=== PATIENT | male | born 1990 | race Caucasian/White ===

== ENCOUNTER 2018-08-25 13:14 | Observation (INO) ==
--- NOTE | 2018-08-25 17:05 | ED ---
HPI General Chief complaint: Extremity Injury, Lower Stated complaint: Foot Complaint Time Seen by Provider: 08/25/18 16:55 History of Present Illness HPI narrative: This is a 27-year-old male who presents for evaluation of left foot injury. He reports that he hit his foot on some concrete while walking downstairs on August 10. He was seen by shape brick molder Dr. Lion and he was diagnosed with 5th metatarsal fracture. He was told to come to the emergency room for consultation with the on-call shape brick molder for open reduction internal fixation. He reports mild pain, aching, aggravated by palpation, alleviated with naproxen and tramadol. He has no other complaints at this time. Related Data Allergies Allergy/AdvReac Type Severity Reaction Status Date / Time No Known Allergies Allergy Verified 08/25/18 17:00 Review of Systems ROS: all other systems reviewed are negative PMFSH Medical History Medical History Patient denies medical problems (Acute) Social History Social History Substance History: No History of Abuse Second Hand Smoke Exposure: No Smoking Status: Never smoker How Often Do You Have a Drink Containing Alcohol: Monthly or less Recent Travel in [facility] within the Last 8 Weeks: No Recent Out of Country Travel within the Last 8 Weeks: No Immunization History Tetanus Immunization: Unsure Exam Narrative Exam Narrative: GENERAL: Well-developed well-nourished male in no acute distress SKIN: Warm and dry. Ecchymosis noted on the dorsum of the left foot. No open wounds. CARDIOVASCULAR: Regular rate and rhythm. No murmur appreciated. RESPIRATORY: No accessory muscle use. Clear to auscultation. Breath sounds equal bilaterally. MUSCULOSKELETAL: No obvious deformities. Skin as noted above. Tender to palpation overlying the left fifth metatarsal. 2+ dorsalis pedis pulse. No tenderness to palpation of the ankle. The Achilles tendon is intact and nontender. NEUROLOGICAL: Awake and alert. No obvious cranial nerve deficits. Motor grossly within normal limits. Normal speech. Course Initial Documented Vital Signs Temperature 98.7 F 08/25/18 13:27 Pulse Rate 80 08/25/18 13:27 Respiratory Rate 16 08/25/18 13:27 Blood Pressure 135/58 L 08/25/18 13:27 Pulse Oximetry 99 08/25/18 13:27 Last Documented Vital Signs Temperature 98.7 F 08/25/18 13:27 Pulse Rate 72 08/25/18 17:00 Respiratory Rate 16 08/25/18 17:00 Blood Pressure 124/61 08/25/18 17:00 Pulse Oximetry 100 08/25/18 17:00 Medical Decision Making YUE Attestation YUE supervised visit: Yes Attestation: I, Dr. Hammonds, have reviewed the advance practice practitioner's documentation and am in agreement, met with the patient face to face, made the diagnosis, and the medical decision making was done by me. *My assessment and Findings: Patient seen and evaluated with PA, please see PA notes for further details. Here for a distracted closed Shah fracture in the left foot, sent in by podiatry for surgery, case was discussed with medicine for admission. MDM Narrative Medical decision making narrative: I spoke with the shape brick molder log pond worker Dr. Arambula who would like the patient admitted to medicine, consultation to podiatry, posterior short leg splint, npo after midnight. Medical Screen Exam Complete: Yes Emergency Medical Condition: Yes Differential Diagnosis Differential Diagnosis: Fifth metatarsal fracture, sprain, contusion, Lisfranc injury Lab Data Result diagrams: 08/25/18 17:55 08/25/18 17:55 Lab Results 08/25/18 Range/Units 17:55 WBC 10.4 (4.0-11.0) th/mm3 RBC 5.15 (4.50-5.90) mil/mm3 Hgb 14.9 (13.0-17.0) gm/dL Hct 42.7 (39.0-51.0) % MCV 83.0 (80.0-100.0) fL MCH 28.9 (27.0-34.0) pg MCHC 34.9 (32.0-36.0) % RDW 12.5 (11.6-17.2) % Plt Count 202 (150-450) th/mm3 MPV 8.4 (7.0-11.0) fL Neut % (Auto) 77.1 H (16.0-70.0) % Lymph % (Auto) 17.1 (9.0-44.0) % [place] % (Auto) 4.7 (0.0-8.0) % Eos % (Auto) 0.8 (0.0-4.0) % Baso % (Auto) 0.3 (0.0-2.0) % Neut # (Auto) 8.0 H (1.8-7.7) th/mm3 Lymph # (Auto) 1.8 (1.0-4.8) th/mm3 [place] # (Auto) 0.5 (0.0-0.9) th/mm3 Eos # (Auto) 0.1 (0.0-0.4) th/mm3 Baso # (Auto) 0.0 (0.0-0.2) th/mm3 WBC Differential . Differential Comment Auto diff final Imaging Data Radiologist's impression: Foot X-Ray 08/25/18 17:00 CONCLUSION: Distracted Shah type fracture of the fifth metatarsal. Discharge Plan Discharge Disposition Patient Disposition: ED Admit(ED Internal Use Only) Discharge Condition Condition: Stable Discharge Order Discharge Orders: ED Use Only Admit Order (Routine); Ordered 08/25/18 Ordered By: Chucho Travis Discharge Details Diagnosis: Closed fracture of metatarsal bone of left foot Physicians Team ED Provider: Pablo Hammonds ED Midlevel Provider: Chucho Travis Status ED Status: With Doctor
--- NOTE | 2018-08-25 17:35 | XR ---
EXAM DATE: 08/25/2018 5:14 PM EST AGE/SEX: 27 years / Male INDICATIONS: Left foot discomfort, known fracture. CLINICAL DATA: This is the patient's initial encounter. Patient reports that signs and symptoms have been present for 3 weeks and indicates a pain score of 1/10. MEDICAL/SURGICAL HISTORY: None. None. COMPARISON: No prior exams available for comparison. EXTERNAL: [place]. FINDINGS: Shah type fracture through the base of the fifth metatarsal with approximately 5 mm of bony distract ion. Osseous structures are otherwise intact. Well-corticated accessory ossification adjacent to the calcaneal cuboid articulation. CONCLUSION: Distracted Shah type fracture of the fifth metatarsal. Electronically signed by: Miguel Hughes MD Board Certified Radiologist 08/25/2018 5:33 PM EST
[2018-08-25 18:03] LABS: Baso % (Auto) 0.3 % (0.0-2.0); Eos # (Auto) 0.1 th/mm3 (0.0-0.4); Eos % (Auto) 0.8 % (0.0-4.0); Hematocrit 42.7 % (39.0-51.0); Hemoglobin 14.9 gm/dL (13.0-17.0); Lymph # (Auto) 1.8 th/mm3 (1.0-4.8); Lymph % (Auto) 17.1 % (9.0-44.0); Mean Corpuscular HGB Conc 34.9 % (32.0-36.0); Mean Corpuscular Hemoglobin 28.9 pg (27.0-34.0); Mean Platelet Volume 8.4 fL (7.0-11.0); Mono # (Auto) 0.5 th/mm3 (0.0-0.9); Mono % (Auto) 4.7 % (0.0-8.0); Neut % (Auto) 77.1 % (16.0-70.0); Platelet Count 202 th/mm3 (150-450); Red Blood Count 5.15 mil/mm3 (4.50-5.90); Red Cell Distribution Width 12.5 % (11.6-17.2); White Blood Count 10.4 th/mm3 (4.0-11.0)
[2018-08-25 18:10] LABS: Activated Partial Thrombo Time 30.2 sec (23.4-31.7); INR 1.1 Ratio; Prothrombin Time 11.2 sec (9.8-11.6)
[2018-08-25] MEDS ORDERED: Bisacodyl 10 MG Supp RECTAL PRN (18:12)
[2018-08-25] MEDS ORDERED: Naloxone Inj 0.4 MG/ML Vial IV.PUSH PRN (18:12)
[2018-08-25] MEDS ORDERED: Acetaminophen 325 MG Tablet PO PRN (18:12)
--- NOTE | 2018-08-25 18:21 | P.HP ---
History of Present Illness Primary Care Physician: No Primary Care Physician Chief Complaint: Left foot pain History of Present Illness: 27-year-old male with no significant past medical history was sent to the ED by his electrical construction project manager for evaluation of left foot injury and admission for possible open reduction internal fixation. Apparently, on August 10, 2018, while patient was walking downstairs he hit his left foot on some concrete causing significant pain. He initially went to an urgent care and patient was diagnosed with fifth metatarsal fracture of the left foot and was fitted initially with a boot. He was then seen a day also by Dr. Lion and was placed on a soft cast was advised on nonweightbearing to the left lower extremity. Patient was prescribed NSAIDs including naproxen and tramadol secondary to a mild pain and achiness. He denies any numbness to his left lower extremity. Patient is currently no other complaints Review of Systems All other systems reviewed negative except as stated in HPI PMFSH - History History Provided By: Patient - Medical History Medical History: Medical History (Last Updated 08/25/18 @ 16:57 by Rbuy Florence RN) Patient denies medical problems - Family History Family History: Family History (Last Updated 08/25/18 @ 18:19 by Tommy Borrego MD) Other Skin cancer - Tobacco History Second Hand Smoke Exposure: No Smoking Status: Never smoker - Alcohol History How Often Do You Have a Drink Containing Alcohol: Monthly or less - Substance Use History Substance History: No History of Abuse - Travel History Recent Travel in the [place] Within the Last 8 Weeks: No Recent Travel Out of the Country Within the Last 8 Weeks: No - Immunization History Tetanus Immunization: Unsure Medications and Allergies Active Medications: Active Medications Acetaminophen (Tylenol) 650 mg PO Q4H PRN PRN Reason: Temp > 100.4 Hydrocodone Bitart/Acetaminophen ([place] 5/325) 1 tab PO Q4H PRN PRN Reason: Acute Pain Al Hydroxide/Mg Hydroxide (Milk Of Magnesia Liq) 30 ml PO Q12H PRN PRN Reason: Mild Constipation Bisacodyl (Dulcolax Supp) 10 mg RECTAL DAILY PRN PRN Reason: SEVERE CONSITIPATION Lactulose (Lactulose Liq) 30 ml PO DAILY PRN PRN Reason: SEVERE CONSITIPATION Naloxone HCl (Narcan Inj) 0.4 mg IV.PUSH UNSCH PRN PRN Reason: SEE LABEL COMMENTS Ondansetron HCl (Zofran Inj) 4 mg IV.PUSH Q6H PRN PRN Reason: NAUSEA OR VOMITING Senna/Docusate Sodium (Molly-Colace) 1 tab PO BID PRAVIN Sennosides (Senokot) 17.2 mg PO Q12H PRN PRN Reason: Moderate Constipation Sodium Chloride (Ns Flush) 2 ml IV.FLUSH BID PRAVIN Sodium Chloride (Ns Flush) 2 ml IV.FLUSH PRN PRN PRN Reason: FLUSH AFTER USING IV ACCESS Allergies Allergy/AdvReac Type Severity Reaction Status Date / Time No Known Allergies Allergy Verified 08/25/18 17:00 Exam Vital signs: Vital Signs 08/25/18 13:27 08/25/18 17:00 Temperature 98.7 F Pulse Rate 80 72 Respiratory Rate 16 16 Blood Pressure 135/58 L 124/61 Pulse Oximetry 99 100 Intake & Output 08/24/18 08/25/18 08/25/18 18:59 06:59 18:59 Weight 70.307 kg Narrative: GENERAL: NAD SKIN: Warm and dry. HEAD: Atraumatic. Normocephalic. EYES: Pupils equal and round. No scleral icterus. No injection or drainage. ENT: No nasal bleeding or discharge. Mucous membranes pink and moist. NECK: Trachea midline. No JVD. CARDIOVASCULAR: Regular rate and rhythm. RESPIRATORY: No accessory muscle use. Clear to auscultation. Breath sounds equal bilaterally. GASTROINTESTINAL: Abdomen soft, non-tender, nondistended. Hepatic and splenic margins not palpable. MUSCULOSKELETAL: Extremities without clubbing, cyanosis, or edema. No obvious deformities. NEUROLOGICAL: Awake and alert. No obvious cranial nerve deficits. Motor grossly within normal limits. Five out of 5 muscle strength in the arms and legs. LLE in cast; neurovascular intact. Normal speech. PSYCHIATRIC: Appropriate mood and affect; insight and judgment normal. Results - Labs CBC & Chem 7: 08/25/18 17:55 08/25/18 17:55 Labs: Laboratory Results - last 24 hr 08/25/18 08/25/18 17:55 17:55 WBC 10.4 RBC 5.15 Hgb 14.9 Hct 42.7 MCV 83.0 MCH 28.9 MCHC 34.9 RDW 12.5 Plt Count 202 MPV 8.4 Neut % (Auto) 77.1 H Lymph % (Auto) 17.1 [place] % (Auto) 4.7 Eos % (Auto) 0.8 Baso % (Auto) 0.3 Neut # (Auto) 8.0 H Lymph # (Auto) 1.8 [place] # (Auto) 0.5 Eos # (Auto) 0.1 Baso # (Auto) 0.0 WBC Differential . Differential Comment Auto diff final PT 11.2 INR 1.1 APTT 30.2 - Imaging Impressions Foot X-Ray 08/25/18 17:00 CONCLUSION: Distracted Shah type fracture of the fifth metatarsal. Caprini VTE Risk Assessment Caprini VTE Risk Assessment: No/Low Risk (score <= 1) Caprini Risk Assessment Model: Point Value = 1 Point Value = 2 Point Value = 3 Point Value = 5 Age 41-60 Minor surgery BMI > 25 kg/m2 Swollen legs Varicose veins or History of unexplained or recurrent spontaneous Oral contraceptives or hormone replacement Sepsis (< 1 month) Serious lung disease, including pneumonia (< 1 month) Abnormal pulmonary function Acute myocardial infarction Congestive heart failure (< 1 month) History of inflammatory bowel disease Medical patient at bed rest Age 61-74 Arthroscopic surgery Major open surgery (> 45 min) Laparoscopic surgery (> 45 min) Malignancy Confined to bed (> 72 hours) Immobilizing plaster cast Central venous access Age >= 75 History of VTE Family history of VTE Factor V Leiden Prothrombin [id number] Lupus anticoagulant Anticardiolipin antibodies Elevated serum homocysteine Heparin-induced thrombocytopenia Other congenital or acquired thrombophilia Stroke (< 1 month) Elective arthroplasty Hip, pelvis, or leg fracture Acute spinal cord injury (< 1 month) Prophylaxis Regimen: Total Risk Factor Score Risk Level Prophylaxis Regimen 0-1 Low Early ambulation 2 Moderate Order ONE of the following: *Sequential Compression Device (SCD) *Heparin 5000 units SQ BID 3-4 Higher Order ONE of the following medications: *Heparin 5000 units SQ TID *Enoxaparin/Lovenox 40 mg SQ daily (WT < 150 kg, CrCl > 30 mL/min) *Enoxaparin/Lovenox 30 mg SQ daily (WT < 150 kg, CrCl > 10-29 mL/min) *Enoxaparin/Lovenox 30 mg SQ BID (WT < 150 kg, CrCl > 30 mL/min) AND/OR *Sequential Compression Device (SCD) 5 or more Highest Order ONE of the following medications: *Heparin 5000 units SQ TID (Preferred with Epidurals) *Enoxaparin/Lovenox 40 mg SQ daily (WT < 150 kg, CrCl > 30 mL/min) *Enoxaparin/Lovenox 30 mg SQ daily (WT < 150 kg, CrCl > 10-29 mL/min) *Enoxaparin/Lovenox 30 mg SQ BID (WT < 150 kg, CrCl > 30 mL/min) AND *Sequential Compression Device (SCD) Assessment and Plan - Plan 27-year-old man with Shah type fracture of the left fifth metatarsal Foot x-ray noted and reviewed by me with finding of Distracted Shah type fracture of the fifth metatarsal Consult Podiatry for evaluation for possible open reduction internal fixation in a.m. keep n.p.o. after midnight Pain management accordingly DVT prophylaxis: Low risk for VTE BMP pending
[2018-08-25 18:32] LABS: Anion Gap 8 meq/L (5-15); Blood Urea Nitrogen 11 mg/dL (7-18); Calcium 9.1 mg/dL (8.5-10.1); Carbon Dioxide 26.8 meq/L (21.0-32.0); Chloride 104 meq/L (98-107); Glomerular Filtration Rate Greater Than 89 mL/min (>89); Glucose,Random 104 mg/dL (74-106); Potassium 3.6 meq/L (3.5-5.1); Sodium 139 meq/L (136-145)
[2018-08-25] MEDS: Senna/Docusate Sodium 8.6/50 MG Tablet PO SCH (22:21)
[2018-08-26 03:57] LABS: Baso % (Auto) 0.4 % (0.0-2.0); Eos # (Auto) 0.2 th/mm3 (0.0-0.4); Eos % (Auto) 2.8 % (0.0-4.0); Hematocrit 40.8 % (39.0-51.0); Hemoglobin 14.1 gm/dL (13.0-17.0); Lymph # (Auto) 2.3 th/mm3 (1.0-4.8); Lymph % (Auto) 29.6 % (9.0-44.0); Mean Corpuscular HGB Conc 34.5 % (32.0-36.0); Mean Corpuscular Hemoglobin 28.8 pg (27.0-34.0); Mean Corpuscular Volume 83.4 fL (80.0-100.0); Mean Platelet Volume 8.7 fL (7.0-11.0); Mono # (Auto) 0.7 th/mm3 (0.0-0.9); Mono % (Auto) 8.6 % (0.0-8.0); Neut # (Auto) 4.6 th/mm3 (1.8-7.7); Neut % (Auto) 58.6 % (16.0-70.0); Platelet Count 192 th/mm3 (150-450); Red Blood Count 4.89 mil/mm3 (4.50-5.90); Red Cell Distribution Width 12.3 % (11.6-17.2); White Blood Count 7.9 th/mm3 (4.0-11.0)
[2018-08-26 04:21] LABS: Albumin 3.8 g/dL (3.4-5.0); Anion Gap 7 meq/L (5-15); Aspartate Aminotransferase 11 U/L (15-37); Blood Urea Nitrogen 14 mg/dL (7-18); Calcium 8.8 mg/dL (8.5-10.1); Carbon Dioxide 28.3 meq/L (21.0-32.0); Chloride 104 meq/L (98-107); Glomerular Filtration Rate Greater Than 89 mL/min (>89); Glucose,Random 92 mg/dL (74-106); Potassium 3.4 meq/L (3.5-5.1); Sodium 139 meq/L (136-145)
[2018-08-26 04:23] LABS: Alanine Aminotransferase 17 U/L (12-78)
[2018-08-26 04:25] LABS: Alkaline Phosphatase 87 U/L (45-117)
[2018-08-26] MEDS: Senna/Docusate Sodium 8.6/50 MG Tablet PO SCH ×2 (08:16→21:47)
--- NOTE | 2018-08-26 09:42 | P.PN ---
Subjective Interval history: Follow-up left fifth metatarsal fracture of the foot August 26, 2018-patient seen and examined, no significant left foot pain. Currently n.p.o. and afebrile. Plan for open reduction internal fixations afternoon. Physical Exam Vital signs: Vital Signs 08/25/18 13:27 08/25/18 17:00 08/25/18 19:00 Temperature 98.7 F Pulse Rate 80 72 71 Respiratory Rate 16 16 18 Blood Pressure 135/58 L 124/61 119/71 Pulse Oximetry 99 100 99 08/25/18 22:12 08/26/18 01:07 08/26/18 05:06 Temperature 98.2 F 97.9 F 97.9 F Pulse Rate 74 58 L 56 L Respiratory Rate 16 16 16 Blood Pressure 117/72 110/67 104/62 Pulse Oximetry 98 100 99 08/26/18 08:00 Temperature 96.6 F L Pulse Rate 49 L Respiratory Rate 16 Blood Pressure 104/55 L Pulse Oximetry 100 Intake & Output 08/25/18 08/26/18 08/26/18 18:59 06:59 18:59 Weight 70.307 kg Other: Date of Last Bowel Movement 08/23/17 Narrative: GENERAL: NAD SKIN: Warm and dry. HEAD: Atraumatic. Normocephalic. EYES: Pupils equal and round. No scleral icterus. No injection or drainage. ENT: No nasal bleeding or discharge. Mucous membranes pink and moist. NECK: Trachea midline. No JVD. CARDIOVASCULAR: Regular rate and rhythm. RESPIRATORY: No accessory muscle use. Clear to auscultation. Breath sounds equal bilaterally. GASTROINTESTINAL: Abdomen soft, non-tender, nondistended. Hepatic and splenic margins not palpable. MUSCULOSKELETAL: Extremities without clubbing, cyanosis, or edema. No obvious deformities. NEUROLOGICAL: Awake and alert. No obvious cranial nerve deficits. Motor grossly within normal limits. Five out of 5 muscle strength in the arms and legs. LLE in cast; neurovascular intact. Normal speech. PSYCHIATRIC: Appropriate mood and affect; insight and judgment normal. Results - Labs CBC & Chem 7: 08/26/18 03:22 08/26/18 03:22 Laboratory Results - last 24 hr 08/25/18 08/25/18 08/25/18 17:55 17:55 17:55 WBC 10.4 RBC 5.15 Hgb 14.9 Hct 42.7 MCV 83.0 MCH 28.9 MCHC 34.9 RDW 12.5 Plt Count 202 MPV 8.4 Neut % (Auto) 77.1 H Lymph % (Auto) 17.1 [place] % (Auto) 4.7 Eos % (Auto) 0.8 Baso % (Auto) 0.3 Neut # (Auto) 8.0 H Lymph # (Auto) 1.8 [place] # (Auto) 0.5 Eos # (Auto) 0.1 Baso # (Auto) 0.0 WBC Differential . Differential Comment Auto diff final PT 11.2 INR 1.1 APTT 30.2 Sodium 139 Potassium 3.6 Chloride 104 Carbon Dioxide 26.8 Anion Gap 8 BUN 11 Creatinine 0.90 Estimated GFR Greater than 89 Random Glucose 104 Calcium 9.1 Total Bilirubin AST ALT Alkaline Phosphatase Total Protein Albumin 08/26/18 08/26/18 03:22 03:22 WBC 7.9 RBC 4.89 Hgb 14.1 Hct 40.8 MCV 83.4 MCH 28.8 MCHC 34.5 RDW 12.3 Plt Count 192 MPV 8.7 Neut % (Auto) 58.6 Lymph % (Auto) 29.6 [place] % (Auto) 8.6 H Eos % (Auto) 2.8 Baso % (Auto) 0.4 Neut # (Auto) 4.6 Lymph # (Auto) 2.3 [place] # (Auto) 0.7 Eos # (Auto) 0.2 Baso # (Auto) 0.0 WBC Differential . Differential Comment Auto diff final PT INR APTT Sodium 139 Potassium 3.4 L Chloride 104 Carbon Dioxide 28.3 Anion Gap 7 BUN 14 Creatinine 0.93 Estimated GFR Greater than 89 Random Glucose 92 Calcium 8.8 Total Bilirubin 0.7 AST 11 L ALT 17 Alkaline Phosphatase 87 Total Protein 7.0 Albumin 3.8 - Imaging Impressions Foot X-Ray 08/25/18 17:00 CONCLUSION: Distracted Shah type fracture of the fifth metatarsal. Assessment and Plan - Plan 27-year-old man with Shah type fracture of the left fifth metatarsal Foot x-ray noted and reviewed by me with finding of Distracted Shah type fracture of the fifth metatarsal Appreciate input from podiatry and plan for open reduction internal fixation today 08/26/18 keep n.p.o. after midnight Pain management accordingly DVT prophylaxis: Low risk for VTE Patient is medically clear to undergo surgery
[2018-08-26] MEDS ORDERED: Bupivacaine 0.25% Inj 50 ML MDV Vial ONE (14:54)
[2018-08-26] MEDS ORDERED: Lidocaine 2% Inj 50 ML Vial ONE (14:54)
[2018-08-26] MEDS ORDERED: fentaNYL Citrate Inj 100 MCG/2 ML Ampul ONE ×2 (15:02→17:08)
[2018-08-26] MEDS ORDERED: ceFAZolin Inj 1 GM in Sodium Chlor 0.9% Inj 100 ML IV.SIG ONE (15:58)
--- NOTE | 2018-08-26 16:44 | XR ---
EXAM DATE: 08/26/2018 4:41 PM EST AGE/SEX: 27 years / Male INDICATIONS: Open reduction, internal fixation of the fifth digit of the left foot. CLINICAL DATA: This is the patient's subsequent encounter. Patient reports that signs and symptoms h ave been present for 2 days and indicates a pain score of Nonresponsive. MEDICAL/SURGICAL HISTORY: None. None. COMPARISON: No prior exams available for comparison. FINDINGS: The patient is status post ORIF of base of the left fifth metatarsal fracture with hardware in good p osition. CONCLUSION: Status post ORIF of base of the left fifth metatarsal fracture with hardware in good position. Electronically signed by: Mario Irby MD Board Certified Radiologist 08/26/2018 4:43 PM EST
--- NOTE | 2018-08-26 16:59 | P.BOP ---
- Preoperative Diagnosis (1) Closed fracture of metatarsal bone of left foot - Postoperative Diagnosis (1) Closed fracture of metatarsal bone of left foot Date of procedure: 08/26/18 Procedure: 1) left 5th metatarsal ORIF Implants: See log Anesthesia: GETA Surgeon: Carmen Arambula DPM Estimated blood loss (mL): 3 Tourniquet time (min): 87 (Left calf) Pathology: none sent Condition: stable Disposition: PACU (d/c home when stable.)
[2018-08-26] MEDS ORDERED: *Meperidine Inj 25 MG/ML Vial PERIprocedural Use ONLY ONE (17:03)
[2018-08-26] MEDS ORDERED: *morphine SULFATE 4 MG/ML PERIprocedure ONLY ONE ×2 (17:17→17:48)
[2018-08-26] MEDS ORDERED: *HYDROmorphone PF Inj 1 MG/ML Ampul PERIprocedural Use ONLY ONE (17:28)
--- NOTE | 2018-08-26 17:34 | XR ---
EXAM DATE: 08/26/2018 5:27 PM EST AGE/SEX: 27 years / Male INDICATIONS: Post operative left foot. CLINICAL DATA: This is the patient's subsequent encounter. Patient reports that signs and symptoms h ave been present for 2 days and indicates a pain score of 0/10. MEDICAL/SURGICAL HISTORY: None. None. [place] [facility] [place]. . FINDINGS: Interim open reduction internal fixation of the fracture of the fifth metatarsal base. Fixation consi sts of a medial plate and multiple screws. Fracture alignment is near-anatomic. A splint is present. No other fractures are demonstrated. No evidence of an acute complication. CONCLUSION: Interim screw and plate fixation of fifth metatarsal base fracture. Near-anatomic alignment. No acute complications are seen. Electronically signed by: Tan Rossi MD Board Certified Radiologist 08/26/2018 5:33 PM EST
--- NOTE | 2018-08-26 18:25 | P.PNADD ---
Addendum to Inpatient Note Additional information: Patient is status post left 5th metatarsal ORIF, and has been cleared by podiatry for discharge home. Therefore will resume diet and discharge patient. Discharge patient to home Condition on discharge: Improved Regular Diet as tolerated Ad Roxanna activity Rx written:none Follow-up with primary care physician Follow-up with podiatry as needed
--- NOTE | 2018-08-26 23:14 | MP ---
cc: Carmen Arambula DPM DATE OF OPERATION: 08/26/2018 PREOPERATIVE DIAGNOSIS: Left foot fifth metatarsal fracture with displacement. POSTOPERATIVE DIAGNOSIS: Left foot fifth metatarsal fracture with displacement. PROCEDURE PERFORMED: Left fifth metatarsal open reduction and internal fixation. SURGEON: Carmen Arambula DPM ANESTHESIA: General. HEMOSTASIS: Left calf tourniquet at 250 mmHg for 87 minutes. ESTIMATED BLOOD LOSS: Less than 3 mL. MATERIALS: Synthes 2.0 hook plate, 2.0 locking screws. INJECTABLES: Postoperatively, 20 mL of 0.5% Marcaine plain, left ankle. BRIEF HISTORY: The patient is a 27-year-old male who sustained a left foot injury with resultant metatarsal fracture at the base with displacement of the first metatarsal 08/10/2018. Ultimately, he was seen at an urgent care, placed in a boot. Followed up with Dr. Lion who recommended surgical intervention. Risks, benefits, pros and cons discussed. The patient freely consented to surgical intervention. No guarantees were given nor implied. DESCRIPTION OF PROCEDURE IN DETAIL: The patient was brought to the operating room, placed on the table in the supine position, after MAC anesthesia was administered. He was placed in the lateral decubitus position on a well-padded taveras bag. A timeout was called. Identifiers noted. Everyone was in agreement with the consent, and site was marked. Attention was then directed to the left foot, where a clamp was used to reduce the fracture fragments. Attempt was made to percutaneously place a 4.0 cannulated lag screw, but appropriate placement was not achieved with the K-wire. Attention was then directed to the left first ray, where an incision was carried through skin and soft tissue down to the level of the fracture fragment, which was curetted, temporarily fixated using a clamp, and then a 2.0 hook plate was placed over the fracture and fixated with K wires and then fixated with 2.0 locking screws by Synthes. Good intraoperative fixation was noted, and good alignment was noted. The incision was copiously irrigated with normal sterile saline and closed in layers with 2-0 Vicryl, 3-0 nylon. Postop block was carried out using 10 mL of 0.5% Marcaine, while the preop block was carried out 1:1 mixture of 2% lidocaine plain along with 0.5% Marcaine plain. Ancef 1 gram was given preoperatively. The patient tolerated the procedure completion. He was placed in a well-padded posterior splint, transferred to ICU for further postoperative monitoring, after which he was discharged home per PACU protocol. Follow up with Dr. Arambula within 1 week of discharge. He will be nonweightbearing. TARYN Pedroza , 10:16 PM , 10:25 PM
== END 2018-08-26 23:29 | disposition home or self-care (01) ==
LOC: NEPE 13:14 → NEDH 13:14 → NEPHCDU 22:01
PROVIDERS: ADMIT Hospitalist; ATTEND Hospitalist
PROC: ORIFTOE (2018-08-26 14:44)
CPT/HCPCS: 73620; 73630; 76000; 80048; 80053; 85025; 85610; 85730; 99285; C1713; C1776; G0378; J0131; J0690; J1170; J2001; J2175; J2270; J3010; J7120